=== PATIENT | male | born 1990 | race Caucasian/White ===

== ENCOUNTER 2017-05-23 23:06 | Emergency (ER) | payer MEDICAID, OTHER ==
[~2017-05-23] VITALS: Ht 182.9 cm; Wt 82.0 kg
[~2017-05-23 23:06] MED LIST: FLEX10TA PO; IBUP600T26 PO; Z.0.NO CURRENT MEDS
[2017-05-23 23:15] VITALS: BP 129/81; PULSE 83; RESP 18; TEMP 98.4; O2SAT 99
--- NOTE | 2017-05-24 | PD ---
HPI Chief Complaint: Psychiatric Symptoms Time Seen by Provider: 23:16 Travel History International Travel<30 days: No Contact w/Intl Traveler<30days: No Traveled to known affect area: No History of Present Illness HPI The patient is a 26 year old male who presents to the [facility] emergency department with a history of being Malave acted prior to arrival. He reports that his and him were arguing this evening. She attempted to leave with his 2 years old child. He jumped on top of the car to prevent her from leaving. He made suicidal statements to the police and was then placed under a Malave Act. The patient reports that he does have a prior history of anxiety, panic attacks, and attention deficit disorder. He denies ever being Malave acted in the past. He denies any suicidal ideations currently. On review of systems otherwise, the patient denies having any fevers, cough, congestion, neck pain, chest pain, shortness of breath, abdominal pain, vomiting, diarrhea, urinary symptoms, or neurologic symptoms. The patient denies hearing voices. The patient reports having a family history of bipolar disorder. [facility] Past Medical History Narrative Medical The patient's past medical history is significant for Anxiety with Panic attacks , attention deficit disorder. Blood Disorders: No Anxiety: Yes ("ANGER PROBLEMS") Cancer: No Cardiovascular Problems: No Diabetes: No Diminished Hearing: No Endocrine: No Genitourinary: No Immune Disorder: No Insomnia: Yes Musculoskeletal: No Neurologic: No Psychiatric: Yes ("PTSD") Reproductive: No Respiratory: No Immunizations Current: Yes Past Surgical History Narrative Surgical The patient's past surgical history is significant for tympanostomy tube placement. Ear Surgery: Yes (TUBES IN EARS CHILD) Other Surgery: Yes (EUSTATION TUBES 2006) Social History Alcohol Use: Yes ("ONCE IN A BLUE AGUSTIN") Tobacco Use: Yes ("E-CIG") Substance Use: No ("I USED TO USE", on Suboxone for 4 years. ) Allergies-Medications (Allergen,Severity, Reaction): Coded Allergies: No Known Allergies (Verified Adverse Reaction, Unknown, 05/23/17) Reported Meds & Prescriptions Reported Meds & Active Scripts Active Ibuprofen 600 Mg Tab 600 Mg PO Q8HPRN Flexeril (Cyclobenzaprine HCl) 10 Mg Tab 10 Mg PO TID 14 Days Reported No Current Meds (Miscellaneous Medication) Misc Narrative Medication Suboxone, Review of Systems Except as stated in HPI: all other systems reviewed are Neg General / Constitutional: No: Fever Eyes: No: Visual changes HENT: No: Headaches Cardiovascular: No: Chest Pain or Discomfort Respiratory: No: Shortness of Breath Gastrointestinal: No: Abdominal Pain Genitourinary: No: Dysuria Musculoskeletal: No: Pain Skin: No Rash Neurologic: No: Weakness Psychiatric: Positive: Anxiety, Mood Disorder, No: Depression, Suicidal Ideations, Homicidal Ideation Endocrine: No: Polydipsia Hematologic/Lymphatic: No: Easy Bruising Physical Exam Narrative General: The patient is a well-developed well-nourished male in no acute distress. Head and Neck exam: Head is normocephalic atraumatic. The patient is noted to have a scratch on the left cheek close to the corner of the nasal aspect of the eye. There is no active bleeding. Eyes: EOMI, pupils are equal round and reactive to light. Nose: Midline septum with pink mucous membranes Mouth: Dentition unremarkable. Moist mucus membranes. Posterior oropharynx is not erythematous. No tonsillar hypertrophy. Uvula midline. Airway patent. Neck: No palpable lymphadenopathy. No nuchal rigidity. No thyromegaly. Cardiovascular: Regular rate and rhythm without murmurs, gallops, or rubs. Lungs: Clear to auscultation bilaterally. No wheezes, rhonchi, or rales. Abdomen: Soft, without tenderness to palpation in all 4 quadrants of the abdomen. No guarding, rebound, or rigidity. Normal bowel sounds are audible. No tenderness on palpation of McBurney's point. Extremities: No clubbing, cyanosis, or edema. 2+ pulses in all 4 extremities. Back: No costovertebral angle tenderness to palpation. Neurologic Exam: Grossly nonfocal. Skin Exam: No rash noted. Intact skin that is warm and dry. Data Data Last Documented VS Vital Signs Date Time Temp Pulse Resp B/P (MAP) Pulse Ox O2 Delivery O2 Flow Rate FiO2 05/24/17 04:00 18 Room Air 05/23/17 23:15 98.4 83 129/81 (97) 99 Orders Orders Complete Blood Count With Diff (05/23/17 23:33) Comprehensive Metabolic Panel (05/23/17 23:33) Prothrombin Time / Inr (Pt) (05/23/17 23:33) Act Partial Throm Time (Ptt) (05/23/17 23:33) Urinalysis - C+S If Indicated (05/23/17 23:33) Iv Access Insert/Monitor (05/23/17 23:33) Ecg Monitoring (05/23/17 23:33) Oximetry (05/23/17 23:33) Psych Screen (05/23/17:) Drug Screen, Random Urine (05/23/17:33) Alcohol (Ethanol) (05/23/17 23:33) Salicylates (Aspirin) (05/23/17 23:33) Tylenol (Acetaminophen) (05/23/17 23:33) Labs Laboratory Tests Test 05/24/17 00:20 05/24/17 01:00 White Blood Count 7.8 TH/MM3 Red Blood Count 4.28 MIL/MM3 Hemoglobin 12.8 GM/DL Hematocrit 37.5 % Mean Corpuscular Volume 87.8 FL Mean Corpuscular Hemoglobin 29.9 PG Mean Corpuscular Hemoglobin Concent 34.0 % Red Cell Distribution Width 12.9 % Platelet Count 213 TH/MM3 Mean Platelet Volume 8.0 FL Neutrophils (%) (Auto) 54.0 % Lymphocytes (%) (Auto) 24.3 % Monocytes (%) (Auto) 10.2 % Eosinophils (%) (Auto) 11.1 % Basophils (%) (Auto) 0.4 % Neutrophils # (Auto) 4.2 TH/MM3 Lymphocytes # (Auto) 1.9 TH/MM3 Monocytes # (Auto) 0.8 TH/MM3 Eosinophils # (Auto) 0.9 TH/MM3 Basophils # (Auto) 0.0 TH/MM3 CBC Comment DIFF FINAL Differential Comment Prothrombin Time 11.1 SEC Prothromb Time International Ratio 1.1 RATIO Activated Partial Thromboplast Time 28.4 SEC Blood Urea Nitrogen 10 MG/DL Creatinine 0.75 MG/DL Random Glucose 109 MG/DL Total Protein 7.2 GM/DL Albumin 4.0 GM/DL Calcium Level 9.0 MG/DL Alkaline Phosphatase 105 U/L Aspartate Amino Transf (AST/SGOT) 33 U/L Alanine Aminotransferase (ALT/SGPT) 25 U/L Total Bilirubin 0.5 MG/DL Sodium Level 139 MEQ/L Potassium Level 4.8 MEQ/L Chloride Level 104 MEQ/L Carbon Dioxide Level 31.7 MEQ/L Anion Gap 3 MEQ/L Estimat Glomerular Filtration Rate 127 ML/MIN Salicylates Level LESS THAN 1.7 MG/DL Acetaminophen Level LESS THAN 2.0 MCG/ML Ethyl Alcohol Level LESS THAN 3 MG/DL Urine Color YELLOW Urine Turbidity CLEAR Urine pH 7.0 Urine Specific [place] 1.014 Urine Protein NEG mg/dL Urine Glucose (UA) NEG mg/dL Urine Ketones NEG mg/dL Urine Occult Blood NEG Urine Nitrite NEG Urine Bilirubin NEG Urine Urobilinogen LESS THAN 2.0 MG/DL Urine Leukocyte Esterase NEG Urine RBC 2 /hpf Urine WBC 1 /hpf Microscopic Urinalysis Comment CULT NOT INDICATED Urine Opiates Screen NEG Urine Barbiturates Screen NEG Urine Amphetamines Screen POS Urine Benzodiazepines Screen POS Urine Cocaine Screen NEG Urine Cannabinoids Screen NEG MDM Medical Decision Making Medical Screen Exam Complete: Yes Emergency Medical Condition: Yes Medical Record Reviewed: Yes Differential Diagnosis Depression with suicidal ideations, versus acute psychosis, versus substance induced mood disorder Narrative Course During the course of the patients emergency department visit, the patients history, examination, and differential diagnosis were reviewed with the patient. The patient was placed on a satellite project site monitor with oximetry and frequent blood pressure monitoring. The patient had IV access obtained and blood work sent for analysis. The patient's Malave act was reviewed. A psychiatric screen was ordered. The patients laboratory studies were reviewed and remarkable for a white count of 7.8, hemoglobin 12.8, platelets 213 with 10.2 monocytes, eosinophils 11.1. CMP is remarkable for an anion gap of 3, glucose 109, PT 11.1, PTT 28.4, urine drug screen is positive for amphetamines, benzodiazepines, salicylate less than 1.7, acetaminophen less than 2, alcohol level less than 3, urinalysis is unremarkable. The patient became suddenly agitated well being observed in the emergency department. The patient had security called to the bedside. While security was at the patient's door, outside the door the patient became again increasingly agitated and screaming accusing the security personnel of "commenting on my penis size". The patient required sedation with Ativan 2 mg IV. The patient was placed in soft restraints for his and staff safety. The patient has been medically cleared for evaluation by the psychiatric screener and psychiatrist under a Malave act. Diagnosis Primary Impression: Agitation Additional Impression: Suicidal ideations Pearl Montague MD May 24, 2017 00:00
[2017-05-24 00:34] LABS: AUTOMATED NEUTROPHIL # 4.2 TH/MM3 (1.8-7.7); BASOPHIL % 0.4 % (0.0-2.0); EOSINOPHIL # 0.9 TH/MM3 (0-0.4); EOSINOPHIL % 11.1 % (0.0-4.0); HEMATOCRIT 37.5 % (39.0-51.0); HEMO FLAGS DIFF FINAL; LYMPH % 24.3 % (9.0-44.0); LYMPHOCYTE # 1.9 TH/MM3 (1.0-4.8); MEAN CELL VOLUME 87.8 FL (80.0-100.0); MEAN CORPUSCULAR HEMOGLOBIN 29.9 PG (27.0-34.0); MONO % 10.2 % (0.0-8.0); PLATELET COUNT 213 TH/MM3 (150-450); RED BLOOD COUNT 4.28 MIL/MM3 (4.50-5.90); RED CELL DISTRIBUTION WIDTH 12.9 % (11.6-17.2); WHITE BLOOD COUNT 7.8 TH/MM3 (4.0-11.0)
[2017-05-24 00:49] LABS: ANION GAP 3 MEQ/L (5-15); AST (GOT) 33 U/L (15-37); BICARBONATE 31.7 MEQ/L (21.0-32.0); BLOOD UREA NITROGEN 10 MG/DL (7-18); CHLORIDE 104 MEQ/L (98-107); GLOMERULAR FILTRATION RATE 127 ML/MIN (>89); POTASSIUM 4.8 MEQ/L (3.5-5.1); SODIUM (NA) 139 MEQ/L (136-145)
[2017-05-24 00:51] LABS: ALKALINE PHOSPHATASE 105 U/L (45-117); ALT (GPT) 25 U/L (12-78); TOTAL BILIRUBIN ADULT 0.5 MG/DL (0.2-1.0)
[2017-05-24 00:53] LABS: ACETAMINOPHEN LESS THAN 2.0 MCG/ML (10.0-30.0); ALCOHOL LESS THAN 3 MG/DL (0-5)
[2017-05-24 01:00] LABS: APTT (PATIENT) 28.4 SEC (24.3-30.1); INTERNATIONAL NORMALIZED RATIO 1.1 RATIO; PROTHROMBIN TIME - PATIENT 11.1 SEC (9.8-11.6)
[2017-05-24 01:33] LABS: BLOOD, URINE NEG (NEG); GLUCOSE,URINE NEG (NEG); KETONE, URINE NEG (NEG); NITRITE,URINE NEG (NEG); URINE COLOR YELLOW (YELLW/STRAW)
[2017-05-24 01:35] LABS: COMMENT (UR) CULT NOT INDICATED; CULTURE IF INDICATED CULT NOT INDICATED
[2017-05-24 04:00] VITALS: RESP 18
[2017-05-24 06:38] VITALS: BP 117/73; PULSE 57; RESP 16; O2SAT 98
[2017-05-24] MEDS ORDERED: BUPR8SUB SL (11:36)
[2017-05-24] MEDS ORDERED: BUPR2SUB SL (11:36)
[2017-05-24] MEDS ORDERED: BUPRENORPHINE/NALOXONE 8 MG/2 MG SUBLINGUAL TAB SL SCH (11:45)
[2017-05-24] MEDS ORDERED: BUPRENORPHINE HCL 8 MG SUBLINGUAL TAB SL ONE (12:30)
[2017-05-24 14:07] VITALS: BP 119/75; PULSE 93; RESP 18; TEMP 98.7; O2SAT 99
--- NOTE | 2017-05-24 17:10 | PD ---
History of Present Illness Chief Complaint: Psychiatric Symptoms Time Seen by Provider: 17:00 Travel History International Travel<30 Days: No Contact w/Intl Traveler<30days: No Known affected area: No Legal Status Legal Status: Malave Act Malave Act Signed By: Osmel Dumont History of Present Illness: 26-year-old male brought in under a Malave act for making suicidal statements to police. This physician reviewed patient's toxicology screen and found it was positive for amphetamines and benzos. Although patient does not have a clear recollection of the events from yesterday, he is currently denying any suicidal or homicidal ideation, plan or intent. He has no psychotic symptoms and his cognition is intact. He is competent to contract for safety and he is doing so. He states that he and his did get into an argument and he did get on the roof of the car but he is not suicidal. PFSH Past Medical History Blood Disorders: No Anxiety: Yes ("ANGER PROBLEMS") Cancer: No Cardiovascular Problems: No Diabetes: No Diminished Hearing: No Endocrine: No Genitourinary: No Immune Disorder: No Insomnia: Yes Musculoskeletal: No Neurologic: No Psychiatric: Yes ("PTSD") Reproductive: No Respiratory: No Immunizations Current: Yes Past Surgical History Ear Surgery: Yes (TUBES IN EARS CHILD) Other Surgery: Yes (EUSTATION TUBES 2006) Psychiatric History Psychiatric History Hx Psychiatric Treatment: PER MEDICAL RECORDS NONE History of Inpatient Treatment: Yes Guns or firearms in home: No Social History Hx Alcohol Use: Yes ("ONCE IN A BLUE AGUSTIN") Hx Tobacco Use: Yes ("E-CIG") Hx Substance Use: Yes Substance Use Type: Amphetamines-Stimulants, Benzos (Valium,Xanax) Other Substances Used: DRINKS ALCOHOL ON WEEKENDS, STATES " ENOUGH" WHEN ASKED AMOUNT. Hx of Substance Use Treatment: No Allergies-Medications (Allergen,Severity, Reaction): Coded Allergies: No Known Allergies (Verified Allergy, Unknown, 05/24/17) Reported Meds & Prescriptions Reported Meds & Active Scripts Active Reported Buprenorphine (Buprenorphine HCl) 8 Mg Subl 8 Mg SL BID Buprenorphine (Buprenorphine HCl) 2 Mg Subl 4 Mg SL DAILY@1600 Review of Systems Except as stated in HPI: all other systems reviewed are Neg Mental Status Examination Appearance: Appropriate Consciousness: Alert Orientation: x4 Motor Activity: Normal gait Speech: Unremarkable Language: Adequate Fund of Knowledge: Adequate Attention and Concentration: Adequate Memory: Unremarkable Mood: Appropriate Affect: Appropriate Thought Process & Associations: Intact Thought Content: Appropriate Hallucination Type: None Delusion Type: None Suicidal Ideation: No Suicidal Plan: No Suicidal Intention: No Homicidal Ideation: No Homicidal Plan: No Homicidal Intention: No Insight: Adequate Judgment: Adequate MDM Medical Decision Making Medical Record Reviewed: Yes Assessment/Plan Patient interviewed at bedside. Medical record reviewed. Case discussed with nurse Swetha. Nurse Jayda spoke with patient's mother and and they both agree patient is safe to be discharged. Patient does not meet criteria for Malave act or involuntary psychiatric hospitalization. Orders Orders Complete Blood Count With Diff (05/23/17 23:33) Comprehensive Metabolic Panel (05/23/17 23:33) Prothrombin Time / Inr (Pt) (05/23/17 23:33) Act Partial Throm Time (Ptt) (05/23/17 23:33) Urinalysis - C+S If Indicated (05/23/17 23:33) Iv Access Insert/Monitor (05/23/17 23:33) Ecg Monitoring (05/23/17 23:33) Oximetry (05/23/17 23:33) Psych Screen (05/23/17 23:33) Drug Screen, Random Urine (05/23/17 23:33) Alcohol (Ethanol) (05/23/17 23:33) Salicylates (Aspirin) (05/23/17 23:33) Tylenol (Acetaminophen) (05/23/17 23:33) Diet Regular Basic (05/24/17 Breakfast) Buprenorphine (Buprenorphine) (05/24/17 12:30) Results Vital Signs Date Time Temp Pulse Resp B/P (MAP) Pulse Ox O2 Delivery O2 Flow Rate FiO2 05/24/17 14:07 98.7 93 18 119/75 (90) 99 Room Air 05/24/17 06:38 57 16 117/73 (88) 98 Room Air 05/24/17 04:00 18 Room Air 05/23/17 23:15 98.4 83 18 129/81 (97) 99 Laboratory Tests Test 05/24/17 00:20 05/24/17 01:00 White Blood Count 7.8 Red Blood Count 4.28 Hemoglobin 12.8 Hematocrit 37.5 Mean Corpuscular Volume 87.8 Mean Corpuscular Hemoglobin 29.9 Mean Corpuscular Hemoglobin Concent 34.0 Red Cell Distribution Width 12.9 Platelet Count 213 Mean Platelet Volume 8.0 Neutrophils (%) (Auto) 54.0 Lymphocytes (%) (Auto) 24.3 Monocytes (%) (Auto) 10.2 Eosinophils (%) (Auto) 11.1 Basophils (%) (Auto) 0.4 Neutrophils # (Auto) 4.2 Lymphocytes # (Auto) 1.9 Monocytes # (Auto) 0.8 Eosinophils # (Auto) 0.9 Basophils # (Auto) 0.0 CBC Comment DIFF FINAL Differential Comment Prothrombin Time 11.1 Prothromb Time International Ratio 1.1 Activated Partial Thromboplast Time 28.4 Blood Urea Nitrogen 10 Creatinine 0.75 Random Glucose 109 Total Protein 7.2 Albumin 4.0 Calcium Level 9.0 Alkaline Phosphatase 105 Aspartate Amino Transf (AST/SGOT) 33 Alanine Aminotransferase (ALT/SGPT) 25 Total Bilirubin 0.5 Sodium Level 139 Potassium Level 4.8 Chloride Level 104 Carbon Dioxide Level 31.7 Anion Gap 3 Estimat Glomerular Filtration Rate 127 Salicylates Level LESS THAN 1.7 Acetaminophen Level LESS THAN 2.0 Ethyl Alcohol Level LESS THAN 3 Urine Color YELLOW Urine Turbidity CLEAR Urine pH 7.0 Urine Specific [place] 1.014 Urine Protein NEG Urine Glucose (UA) NEG Urine Ketones NEG Urine Occult Blood NEG Urine Nitrite NEG Urine Bilirubin NEG Urine Urobilinogen LESS THAN 2.0 Urine Leukocyte Esterase NEG Urine RBC 2 Urine WBC 1 Microscopic Urinalysis Comment CULT NOT INDICATED Urine Opiates Screen NEG Urine Barbiturates Screen NEG Urine Amphetamines Screen POS Urine Benzodiazepines Screen POS Urine Cocaine Screen NEG Urine Cannabinoids Screen NEG Diagnosis Primary Impression: Benzodiazepine abuse Arvind Cochran MD May 24, 2017 17:09
--- NOTE | 2017-05-24 17:35 | PD ---
Physical Exam Time Seen by Provider: 17:[address] Cochran evaluated the patient, lifted Malave act and cleared the patient for discharge. Data Data Last Documented VS Vital Signs Date Time Temp Pulse Resp B/P (MAP) Pulse Ox O2 Delivery O2 Flow Rate FiO2 05/24/17 14:07 98.7 93 18 119/75 (90) 99 Room Air Orders Orders Complete Blood Count With Diff (05/23/17 23:33) Comprehensive Metabolic Panel (05/23/17 23:33) Prothrombin Time / Inr (Pt) (05/23/17 23:33) Act Partial Throm Time (Ptt) (05/23/17 23:33) Urinalysis - C+S If Indicated (05/23/17 23:33) Iv Access Insert/Monitor (05/23/17 23:33) Ecg Monitoring (05/23/17 23:33) Oximetry (05/23/17 23:33) Psych Screen (05/23/17 23:33) Drug Screen, Random Urine (05/23/17 23:33) Alcohol (Ethanol) (05/23/17 23:33) Salicylates (Aspirin) (05/23/17 23:33) Tylenol (Acetaminophen) (05/23/17 23:33) Diet Regular Basic (05/24/17 Breakfast) Buprenorphine (Buprenorphine) (05/24/17 12:30) Diet Regular Basic (05/24/17 Dinner) Labs Laboratory Tests Test 05/24/17 00:20 05/24/17 01:00 White Blood Count 7.8 TH/MM3 Red Blood Count 4.28 MIL/MM3 Hemoglobin 12.8 GM/DL Hematocrit 37.5 % Mean Corpuscular Volume 87.8 FL Mean Corpuscular Hemoglobin 29.9 PG Mean Corpuscular Hemoglobin Concent 34.0 % Red Cell Distribution Width 12.9 % Platelet Count 213 TH/MM3 Mean Platelet Volume 8.0 FL Neutrophils (%) (Auto) 54.0 % Lymphocytes (%) (Auto) 24.3 % Monocytes (%) (Auto) 10.2 % Eosinophils (%) (Auto) 11.1 % Basophils (%) (Auto) 0.4 % Neutrophils # (Auto) 4.2 TH/MM3 Lymphocytes # (Auto) 1.9 TH/MM3 Monocytes # (Auto) 0.8 TH/MM3 Eosinophils # (Auto) 0.9 TH/MM3 Basophils # (Auto) 0.0 TH/MM3 CBC Comment DIFF FINAL Differential Comment Prothrombin Time 11.1 SEC Prothromb Time International Ratio 1.1 RATIO Activated Partial Thromboplast Time 28.4 SEC Blood Urea Nitrogen 10 MG/DL Creatinine 0.75 MG/DL Random Glucose 109 MG/DL Total Protein 7.2 GM/DL Albumin 4.0 GM/DL Calcium Level 9.0 MG/DL Alkaline Phosphatase 105 U/L Aspartate Amino Transf (AST/SGOT) 33 U/L Alanine Aminotransferase (ALT/SGPT) 25 U/L Total Bilirubin 0.5 MG/DL Sodium Level 139 MEQ/L Potassium Level 4.8 MEQ/L Chloride Level 104 MEQ/L Carbon Dioxide Level 31.7 MEQ/L Anion Gap 3 MEQ/L Estimat Glomerular Filtration Rate 127 ML/MIN Salicylates Level LESS THAN 1.7 MG/DL Acetaminophen Level LESS THAN 2.0 MCG/ML Ethyl Alcohol Level LESS THAN 3 MG/DL Urine Color YELLOW Urine Turbidity CLEAR Urine pH 7.0 Urine Specific [place] 1.014 Urine Protein NEG mg/dL Urine Glucose (UA) NEG mg/dL Urine Ketones NEG mg/dL Urine Occult Blood NEG Urine Nitrite NEG Urine Bilirubin NEG Urine Urobilinogen LESS THAN 2.0 MG/DL Urine Leukocyte Esterase NEG Urine RBC 2 /hpf Urine WBC 1 /hpf Microscopic Urinalysis Comment CULT NOT INDICATED Urine Opiates Screen NEG Urine Barbiturates Screen NEG Urine Amphetamines Screen POS Urine Benzodiazepines Screen POS Urine Cocaine Screen NEG Urine Cannabinoids Screen NEG MDM Supervised Visit with ESPERANZA: No Narrative Course Dr. Cochran evaluated the patient, lifted Frieda hwang and cleared the patient for discharge. Patient contracts safety. Denies suicidal or homicidal ideations. Patient will be provided community resource packet to [facility]LE for follow-up. Has friends and family for support. Patient was medically cleared by alternate provider prior to psych screening. Patient has been evaluated by psychiatry and and is now cleared for discharge. Diagnosis Primary Impression: Benzodiazepine abuse Referrals: KATALINA (Out patient) [facility] Primary Care Physician Psychiatrist [facility] Patient Instructions: Benzodiazepine Abuse (ED), General Instructions Additional Instruction: Contract safety to your self and others Follow-up with psychiatry Follow-up with primary care provider Follow-up with Duc Hernandez Return to the emergency department immediately with worsening of symptoms Med/Other Pt SpecificInfo: No Change to Meds, No Meds Exist/No RX given Disposition: 01 DISCHARGE HOME Condition: Stable Bhumi Bhandari May 24, 2017 17:35
== END 2017-05-24 18:15 | disposition home or self-care (01) ==
LOC: NEPE 23:06 → NEPJ 05-24 18:15
DX: F19.10 Other psychoactive substance abuse, uncomplicated (principal); Z79.899 Other long term (current) drug therapy; F17.290 Nicotine dependence, other tobacco product, uncomplicated; F41.9 Anxiety disorder, unspecified; F43.10 Post-traumatic stress disorder, unspecified; G47.00 Insomnia, unspecified
CPT/HCPCS: 80053; 80307; 81001; 85025; 85610; 85730; 99285

== ENCOUNTER 2017-10-22 10:46 | Emergency (ER) | payer MEDICAID, OTHER ==
[~2017-10-22] VITALS: Ht 180.3 cm; Wt 74.2 kg
[~2017-10-22 10:46] MED LIST changes: +BUPR2SUB SL; +BUPR8SUB SL; -FLEX10TA PO; -IBUP600T26 PO; -Z.0.NO CURRENT MEDS
[2017-10-22 10:48] VITALS: BP 244/183; PULSE 88; RESP 16; TEMP 97.6; O2SAT 100
[2017-10-22] MEDS ORDERED: BUPRENORPHINE (11:09)
== END 2017-10-22 12:02 | disposition left against medical advice (07) ==
LOC: PHED 10:46
DX: F11.23 Opioid dependence with withdrawal (principal); Z53.21 Procedure and treatment not carried out due to patient leaving prior to being seen by health care provider
CPT/HCPCS: 99281